=== PATIENT | male | born 1990 | race Caucasian/White ===

== ENCOUNTER 2019-03-23 18:11 | Emergency (ER) | payer MEDICAID, OTHER ==
[~2019-03-23] VITALS: Ht 182.9 cm; Wt 111.3 kg
[2019-03-23 18:19] VITALS: BP 170/98
[2019-03-23] MEDS ORDERED: AMOX500C2 PO (19:28)
[2019-03-23] MEDS ORDERED: CHLO473M3 PO (19:28)
[2019-03-23] MEDS ORDERED: ibuprofen tablet 400 MG TABLET PO ONE (19:30)
[2019-03-23] MEDS ORDERED: IBUP-1985 PO (19:30)
== END 2019-03-23 19:37 | disposition home or self-care (01) ==
LOC: ER 18:12
DX: K08.89 Other specified disorders of teeth and supporting structures (principal); Z79.2 Long term (current) use of antibiotics; Z79.899 Other long term (current) drug therapy
CPT/HCPCS: 99283